=== PATIENT | female | born 1945 | race Two or more races ===

== ENCOUNTER → 2017-09-13 | Outpatient (REF) | payer MEDICARE, MEDICAID ==
[2017-09-13 13:47] LABS: BASO # 0.1 10^3/uL (0.0-0.2); BASO % 0.6 % (0.0-1.0); EOS # 0.3 10^3/uL (0.0-0.50); EOS % 2.7 % (0.0-3.0); LYMPH # 2.4 10^3/uL (1.5-4.5); LYMPH % 23.3 % (24.0-44.0); MEAN CORPUSCULAR HEMOGLOBIN 29.1 pg (27.0-33.0); MEAN CORPUSCULAR VOLUME 90.9 fl (80.0-96.0); MONO # 0.8 10^3/uL (0.0-0.8); MONO % 8.1 % (0.0-5.0); NEUTROPHILS # 6.5 10^3/uL (1.8-7.7); NEUTROPHILS % 64.3 % (36.0-66.0); PLATELET COUNT, AUTOMATED 307 10^3/uL (150-450); RED CELL DISTRIBUTION WIDTH 12.9 % (11.5-14.5); WHITE BLOOD COUNT 10.1 10^3/uL (4.0-10.0)
[2017-09-13 14:38] LABS: PERCENT SATURATION 17.4 % (13.2-45.0)
== END ==
LOC: M SFHCPLAZ 11:53
PROVIDERS: ATTEND Physician Assistant Medical
DX: E11.8 Type 2 diabetes mellitus with unspecified complications (principal); K92.1 Melena
CPT/HCPCS: 82728; 83036; 83550; 85025; G0463

== ENCOUNTER → 2017-11-01 | Outpatient (REF) | payer MEDICARE ==
[2017-11-01 16:27] LABS: BASO # 0.1 10^3/uL (0.0-0.2); BASO % 1.2 % (0.0-1.0); EOS # 0.3 10^3/uL (0.0-0.50); EOS % 3.4 % (0.0-3.0); HEMATOCRIT 36.1 % (36.0-47.0); HEMOGLOBIN 11.7 g/dl (12.0-16.0); IMMATURE GRANULOCYTE % 0.3 % (0-0); LYMPH # 2.5 10^3/uL (1.5-4.5); LYMPH % 32.5 % (24.0-44.0); MEAN CORPUSCULAR HEMOGLOBIN 29.1 pg (27.0-33.0); MEAN CORPUSCULAR HGB CONC 32.4 g/dl (32.0-36.5); MEAN CORPUSCULAR VOLUME 89.8 fl (80.0-96.0); MONO # 0.7 10^3/uL (0.0-0.8); MONO % 8.6 % (0.0-5.0); NEUTROPHILS # 4.2 10^3/uL (1.8-7.7); PLATELET COUNT, AUTOMATED 206 10^3/uL (150-450); RED BLOOD COUNT 4.02 10^6/uL (4.00-5.40); RED CELL DISTRIBUTION WIDTH 13.2 % (11.5-14.5); WHITE BLOOD COUNT 7.7 10^3/uL (4.0-10.0)
[2017-11-01 17:13] LABS: ALBUMIN 3.8 GM/DL (3.2-5.2); ALBUMIN/GLOBULIN RATIO 0.86 (1.00-1.93); ALKALINE PHOSPHATASE 66 U/L (45-117); ALT/SGPT 18 U/L (12-78); ANION GAP 6 MEQ/L (8-16); AST/SGOT 18 U/L (7-37); BILIRUBIN,TOTAL 0.4 MG/DL (0.2-1.0); BLOOD UREA NITROGEN 30 MG/DL (7-18); CALCIUM LEVEL 8.8 MG/DL (8.8-10.2); CARBON DIOXIDE LEVEL 29 MEQ/L (21-32); CHLORIDE LEVEL 105 MEQ/L (98-107); CHOLESTEROL LEVEL 262 MG/DL (<200); CHOLESTEROL RISK RATIO 7.081 (<5); CREATININE FOR GFR 1.36 MG/DL (0.55-1.02); FERRITIN 77 NG/ML (8-252); FREE T4 1.08 NG/DL (0.76-1.46); GLOMERULAR FILTRATION RATE 40.7 (>39); GLUCOSE, FASTING 103 MG/DL (70-100); HDL CHOLESTEROL 37 MG/DL (>40); IRON (FE) 88 UG/DL (50-170); NON-HDL-C 225 MG/DL; PERCENT SATURATION 28.2 % (13.2-45.0); POTASSIUM SERUM 4.9 MEQ/L (3.5-5.1); SODIUM LEVEL 140 MEQ/L (136-145); TOTAL IRON BINDING CAPACITY 312 UG/DL (250-450); TOTAL PROTEIN 8.2 GM/DL (6.4-8.2); TRIGLYCERIDES LEVEL 628 MG/DL (<150)
== END ==
LOC: M SFHCPLAZ 15:17
DX: D50.9 Iron deficiency anemia, unspecified (principal); E11.8 Type 2 diabetes mellitus with unspecified complications; E03.9 Hypothyroidism, unspecified; Z13.220 Encounter for screening for lipoid disorders
CPT/HCPCS: 83550

== ENCOUNTER → 2018-02-22 | Outpatient (REF) | payer MEDICARE, MEDICAID ==
[2018-02-22 12:26] LABS: ALBUMIN 3.7 GM/DL (3.2-5.2); ALBUMIN/GLOBULIN RATIO 0.88 (1.00-1.93); ALKALINE PHOSPHATASE 65 U/L (45-117); ALT/SGPT 24 U/L (12-78); ANION GAP 7 MEQ/L (8-16); AST/SGOT 20 U/L (7-37); BILIRUBIN,TOTAL 0.4 MG/DL (0.2-1.0); BLOOD UREA NITROGEN 37 MG/DL (7-18); CALCIUM LEVEL 9.2 MG/DL (8.8-10.2); CARBON DIOXIDE LEVEL 27 MEQ/L (21-32); CHLORIDE LEVEL 109 MEQ/L (98-107); CREATININE FOR GFR 1.68 MG/DL (0.55-1.30); GLOMERULAR FILTRATION RATE 31.9 (>39); GLUCOSE, FASTING 134 MG/DL (70-100); POTASSIUM SERUM 4.9 MEQ/L (3.5-5.1); SODIUM LEVEL 143 MEQ/L (136-145); TOTAL PROTEIN 7.9 GM/DL (6.4-8.2)
[2018-02-22 13:02] LABS: ESTIMATED AVERAGE GLUCOSE 140 MG/DL (60-110); HEMOGLOBIN A1c 6.5 %
== END ==
LOC: M SFHCPLAZ 08:37
DX: E11.8 Type 2 diabetes mellitus with unspecified complications (principal); I10 Essential (primary) hypertension
CPT/HCPCS: 80053

== ENCOUNTER → 2018-05-24 | Outpatient (REF) | payer OTHER, MEDICAID ==
[2018-05-24 12:26] LABS: ALBUMIN 3.7 GM/DL (3.2-5.2); ALKALINE PHOSPHATASE 61 U/L (45-117); ALT/SGPT 22 U/L (12-78); ANION GAP 5 MEQ/L (8-16); AST/SGOT 18 U/L (7-37); BILIRUBIN,TOTAL 0.4 MG/DL (0.2-1.0); BLOOD UREA NITROGEN 35 MG/DL (7-18); CARBON DIOXIDE LEVEL 32 MEQ/L (21-32); CHLORIDE LEVEL 108 MEQ/L (98-107); FREE T4 0.72 NG/DL (0.76-1.46); GLOMERULAR FILTRATION RATE 27.7 (>39); GLUCOSE, FASTING 129 MG/DL (70-100); SODIUM LEVEL 145 MEQ/L (136-145); TOTAL PROTEIN 7.8 GM/DL (6.4-8.2)
[2018-05-24 12:28] LABS: POTASSIUM SERUM 5.2 MEQ/L (3.5-5.1)
== END ==
LOC: M SFHCPLAZ 08:51
DX: N18.3 Chronic kidney disease, stage 3 (moderate) (principal); E03.9 Hypothyroidism, unspecified

== ENCOUNTER → 2018-06-27 | Outpatient (REF) | payer OTHER, MEDICAID ==
[2018-06-27 10:51] LABS: ALBUMIN 4.1 GM/DL (3.2-5.2); ALKALINE PHOSPHATASE 61 U/L (45-117); ALT/SGPT 21 U/L (12-78); ANION GAP 6 MEQ/L (8-16); AST/SGOT 21 U/L (7-37); BILIRUBIN,TOTAL 0.4 MG/DL (0.2-1.0); BLOOD UREA NITROGEN 25 MG/DL (7-18); CALCIUM LEVEL 9.5 MG/DL (8.8-10.2); CARBON DIOXIDE LEVEL 27 MEQ/L (21-32); CHLORIDE LEVEL 106 MEQ/L (98-107); CREATININE FOR GFR 1.65 MG/DL (0.55-1.30); GLOMERULAR FILTRATION RATE 32.6 (>39); GLUCOSE, FASTING 117 MG/DL (70-100); POTASSIUM SERUM 5.7 MEQ/L (3.5-5.1); SODIUM LEVEL 139 MEQ/L (136-145); TOTAL PROTEIN 8.2 GM/DL (6.4-8.2)
== END ==
LOC: M SFHCPLAZ 08:44
DX: N18.3 Chronic kidney disease, stage 3 (moderate) (principal)

== ENCOUNTER → 2018-07-24 | Outpatient (REF) | payer OTHER, MEDICAID ==
[2018-07-24 12:18] LABS: ESTIMATED AVERAGE GLUCOSE 143 MG/DL (60-110); HEMOGLOBIN A1c 6.6 %
[2018-07-24 12:29] LABS: ALBUMIN 3.5 GM/DL (3.2-5.2); ALBUMIN/GLOBULIN RATIO 0.88 (1.00-1.93); ALKALINE PHOSPHATASE 65 U/L (45-117); ALT/SGPT 22 U/L (12-78); ANION GAP 8 MEQ/L (8-16); AST/SGOT 17 U/L (7-37); BILIRUBIN,TOTAL 0.4 MG/DL (0.2-1.0); BLOOD UREA NITROGEN 31 MG/DL (7-18); CALCIUM LEVEL 8.6 MG/DL (8.8-10.2); CARBON DIOXIDE LEVEL 28 MEQ/L (21-32); CHLORIDE LEVEL 105 MEQ/L (98-107); CREATININE FOR GFR 1.57 MG/DL (0.55-1.30); FREE T4 1.29 NG/DL (0.76-1.46); GLOMERULAR FILTRATION RATE 34.5 (>39); GLUCOSE, FASTING 151 MG/DL (70-100); POTASSIUM SERUM 5.1 MEQ/L (3.5-5.1); SODIUM LEVEL 141 MEQ/L (136-145); THYROID STIMULATING HORMONE 0.084 uIU/ML (0.358-3.740); TOTAL PROTEIN 7.5 GM/DL (6.4-8.2)
== END ==
LOC: M SFHCPLAZ 09:40
DX: N18.3 Chronic kidney disease, stage 3 (moderate) (principal); E03.9 Hypothyroidism, unspecified; E11.8 Type 2 diabetes mellitus with unspecified complications
CPT/HCPCS: 84443

== ENCOUNTER → 2018-08-15 | Outpatient (REF) | payer OTHER, MEDICAID ==
[2018-08-15 12:21] LABS: ANION GAP 6 MEQ/L (8-16); BLOOD UREA NITROGEN 36 MG/DL (7-18); CALCIUM LEVEL 9.3 MG/DL (8.8-10.2); CARBON DIOXIDE LEVEL 32 MEQ/L (21-32); CHLORIDE LEVEL 103 MEQ/L (98-107); CREATININE FOR GFR 1.79 MG/DL (0.55-1.30); GLOMERULAR FILTRATION RATE 29.6 (>39); GLUCOSE, FASTING 159 MG/DL (70-100); POTASSIUM SERUM 4.3 MEQ/L (3.5-5.1); SODIUM LEVEL 141 MEQ/L (136-145)
== END ==
LOC: M SFHCPLAZ 09:45
DX: N18.3 Chronic kidney disease, stage 3 (moderate) (principal)

== ENCOUNTER → 2018-09-21 | Outpatient (REF) | payer MEDICARE, MEDICAID | LOC: M SFHCPLAZ 15:18 | DX: R06.02 Shortness of breath (principal); E11.8 Type 2 diabetes mellitus with unspecified complications; Z53.8 Procedure and treatment not carried out for other reasons ==

== ENCOUNTER → 2018-10-03 | Outpatient (CLI) | payer MEDICARE ==
--- NOTE | 2018-11-05 09:49 | REP ---
BILATERAL SCREENING MAMMOGRAM WITH 3D TOMOSYNTHESIS: No prior studies available for comparison. Tyrer-Cuzick lifetime risk of breast cancer 5.5%. Family history of breast cancer at age 37 in a niece. Benign lumpectomy left breast 2000. There is mild scattered fibroglandular tissue bilaterally. In the lower outer left breast there is a spiculated nodular opacity approximately 1.5 cm in maximum diameter. This is in the mid third to posterior aspect of the left breast. No other mass or clustered microcalcifications are seen. IMPRESSION: BIRADS 0: BI-RADS/ACR category 0 mammogram, Incomplete. Need additional imaging evaluation and/or prior mammograms for comparison. Spiculated nodular opacity lower outer left breast. Recommend spot compression views and ultrasound to further evaluate. This mammogram was interpreted with the aid of an FDA-approved computer-aided detection system. The patient states she has not had a clinical breast exam in over a year. The patient letter being requested is M0.
== END ==
LOC: M WHC 10:22
PROVIDERS: ATTEND Physician Assistant Medical
DX: Z12.31 Encounter for screening mammogram for malignant neoplasm of breast (principal); Z80.3 Family history of malignant neoplasm of breast; N63.23 Unspecified lump in the left breast, lower outer quadrant

== ENCOUNTER → 2018-10-19 | Outpatient (REF) | payer MEDICARE, MEDICAID ==
[2018-10-19 12:15] LABS: BASO # 0.1 10^3/uL (0.0-0.2); EOS # 0.2 10^3/uL (0.0-0.50); EOS % 2.5 % (0.0-3.0); HEMATOCRIT 36.7 % (36.0-47.0); HEMOGLOBIN 12.1 g/dl (12.0-15.5); LYMPH # 2.2 10^3/uL (1.5-4.5); LYMPH % 27.2 % (24.0-44.0); MEAN CORPUSCULAR HEMOGLOBIN 29.3 pg (27.0-33.0); MEAN CORPUSCULAR VOLUME 88.9 fl (80.0-96.0); MONO # 0.7 10^3/uL (0.0-0.8); MONO % 8.2 % (0.0-5.0); NEUTROPHILS # 4.8 10^3/uL (1.8-7.7); PLATELET COUNT, AUTOMATED 195 10^3/uL (150-450); RED BLOOD COUNT 4.13 10^6/uL (4.00-5.40); WHITE BLOOD COUNT 7.9 10^3/uL (4.0-10.0)
[2018-10-19 12:18] LABS: ALBUMIN 3.9 GM/DL (3.2-5.2); BILIRUBIN,TOTAL 0.3 MG/DL (0.2-1.0); CALCIUM LEVEL 9.8 MG/DL (8.8-10.2); CREATININE FOR GFR 1.32 MG/DL (0.55-1.30); POTASSIUM SERUM 4.9 MEQ/L (3.5-5.1); TOTAL PROTEIN 7.8 GM/DL (6.4-8.2)
[2018-10-19 12:28] LABS: HEMOGLOBIN A1c 6.7 %
[2018-10-19 12:34] LABS: FREE T4 1.1 NG/DL (0.76-1.46); THYROID STIMULATING HORMONE 3.02 uIU/ML (0.358-3.740)
== END ==
LOC: M SFHCPLAZ 09:26
PROVIDERS: ATTEND Physician Assistant Medical
DX: E03.9 Hypothyroidism, unspecified (principal); R06.02 Shortness of breath; N18.3 Chronic kidney disease, stage 3 (moderate); E11.22 Type 2 diabetes mellitus with diabetic chronic kidney disease

== ENCOUNTER → 2018-11-14 | Outpatient (CLI) | payer MEDICARE, MEDICAID ==
--- NOTE | 2018-11-14 13:45 | REP ---
Digital diagnostic unilateral left breast mammography with CAD and focused left breast sonography: History: Screening mammography from October 03, 2018 was BI-RADS category 0 because of a spiculated nodular opacity in the lateral aspect of the left breast. Diagnostic imaging was recommended. No comparison prior mammograms. Mammographic findings: Magnified focal spot compression CC, true ML, and MLO views of the left breast confirm the presence of an ill-defined somewhat spiculated appearing asymmetric density in the left lateral mid breast at approximately 3 o'clock. This has ill-defined margins but measures approximately 12 mm in greatest diameter. This corresponds to the mammographic findings on October 03, 2018. No other mammographic abnormality. Sonographic findings: Focused left breast sonography is carried out. The left breast is scanned from 2 o'clock to 4 o'clock. At 3 o'clock there is a hypoechoic irregularly marginated spiculated appearing lesion 1.4 x 1.2 x 0.9 cm with acoustic shadowing. This is 4.8 cm from the nipple. On several images its long axis appears perpendicular to the skin. It is felt to correspond to the mammographic opacity. It is suspicious by sonographic criteria. Impression: BIRADS 5: BI-RADS/ACR category 5 mammogram. Highly Suggestive of Malignancy - appropriate action should be taken. BI-RADS category 5 highly suspicious left breast imaging. Spiculated lesion seen mammographically and sonographically in the left lateral breast. Ultrasound guided needle biopsy procedure is recommended with marker clip placement and post marker clip placement mammogram images. This mammogram was interpreted with the aid of an FDA-approved computer-aided detection system. The patient letter being requested is m4 . Electronically Signed by Pedro Ruiz MD 11/14/2018 07:02 P
== END ==
LOC: M RAD 11:13
PROVIDERS: ATTEND Physician Assistant Medical
DX: R92.8 Other abnormal and inconclusive findings on diagnostic imaging of breast (principal)

== ENCOUNTER 2018-12-01 19:39 | Emergency (ER) | payer MEDICARE, MEDICAID ==
[~2018-12-01] VITALS: Ht 165.1 cm; Wt 65.0 kg
[2018-12-01 20:15] VITALS: BP 189/86
[2018-12-01] MEDS ORDERED: cloNIDine 0.1 MG TAB PO ONE (20:15)
[2018-12-01 20:38] LABS: CREATININE FOR GFR 1.48 MG/DL (0.55-1.30); GLOMERULAR FILTRATION RATE 36.8 (>39)
[2018-12-01 20:57] VITALS: BP 158/73
--- NOTE | 2018-12-02 17:47 | ECGEPIP ---
Stationary ECG Study [facility] - ED Test Date: 2018-12-01 Pat Name: COBY NIEVES Department: Room: - Gender: F Complaint Analyst: : 1945 Requested By: ARSH VAUGHAN Order Number: [id number] Reading MD: Zee Funez Measurements Intervals [place] Rate: 104 P: 50 [place]: 180 QRS: 19 QRSD: 90 T: 59 QT: 313 QTc: 413 Interpretive Statements SINUS TACHYCARDIA MINIMAL ST DEPRESSION ABNORMAL RHYTHM ECG NO PRIOR FOR COMPARISON Electronically Signed On 12-02-2018 17:47:30 EST by Zee Funez
== END 2018-12-01 20:58 | disposition home or self-care (01) ==
LOC: M ED 19:39
DX: I10 Essential (primary) hypertension (principal); R00.0 Tachycardia, unspecified; R94.31 Abnormal electrocardiogram [ECG] [EKG]; E11.9 Type 2 diabetes mellitus without complications; K21.9 Gastro-esophageal reflux disease without esophagitis; F41.9 Anxiety disorder, unspecified; E03.9 Hypothyroidism, unspecified; E73.9 Lactose intolerance, unspecified

== ENCOUNTER → 2018-12-07 | Outpatient (CLI) | payer MEDICARE, MEDICAID ==
[~2018-12-07] MED LIST: LIDOCAINE 1% MDV 20ML VIAL As Ordered ONE
--- NOTE | 2018-12-07 10:03 | REP ---
Digital diagnostic unilateral left breast mammogram with CAD: History: Two-view mammography post ultrasound-guided needle biopsy. Marker clip placement views. Comparison mammography 10/03/2018. Findings: CC and true MLO views of the left breast demonstrate that the needle biopsy marker clip is in good position adjacent to the spiculated lesion seen laterally in the left breast on both views. No evidence of hematoma. Impression: Marker clip is seen in good position. Electronically Signed by Pedro Ruiz MD 12/07/2018 02:39 P
--- NOTE | 2018-12-07 17:13 | REP ---
ULTRASOUND-GUIDED LEFT BREAST BIOPSY The procedure was performed under the direct supervision of Dr. Ruiz. Patient has a history of A hypoechoic the irregularly marginated spiculated appearing lesion measuring 1.4 x 1.2 x 0.9 cm in the 3 o'clock position of the left breast seen on a previous ultrasound dated 11/14/2018. The risks and benefits of the procedure were explained to the patient, through an production clerk, and informed consent was obtained. The left breast mass was localized using ultrasound guidance. The skin was prepped and draped in a sterile fashion. 1% lidocaine was used as a local anesthetic. Using ultrasound guidance a 13-gauge suction assisted Mammotome needle was inserted and six core biopsy samples were obtained. A marker clip was placed at the biopsy site. The patient tolerated the procedure well and there were no immediate complications. After the appropriate amount of monitored convalescence the patient was discharged from the department. Reviewed by BJORN Pitts 12/07/2018 04:05 P Electronically Signed by Pedro Ruiz MD 12/07/2018 05:04 P
== END ==
LOC: M RADPRO 08:09
PROVIDERS: ATTEND Physician Assistant Medical
DX: C50.412 Malignant neoplasm of upper-outer quadrant of left female breast (principal); C50.512 Malignant neoplasm of lower-outer quadrant of left female breast; Z17.0 Estrogen receptor positive status [ER+]; Z79.899 Other long term (current) drug therapy

== ENCOUNTER → 2019-01-23 | Outpatient (REF) | payer MEDICARE, MEDICAID ==
[2019-01-23 12:36] LABS: FREE T4 0.9 NG/DL (0.76-1.46); THYROID STIMULATING HORMONE 2.73 uIU/ML (0.358-3.740)
== END ==
LOC: M SFHCPLAZ 10:06
PROVIDERS: ATTEND Physician Assistant Medical
DX: E03.9 Hypothyroidism, unspecified (principal)
CPT/HCPCS: 36415; 84439; 84443; G0463

== ENCOUNTER → 2019-03-01 | Outpatient (CLI) | payer MEDICARE, MEDICAID ==
[~2019-03-01] MED LIST changes: +AMLO25TA PO; +ARIM1TAB5 PO; +ATOR1TAB21 PO; +B-12100T2 PO; +HM A10TA PO; +KP F1200 PO; +LEVO112T2 PO; -LIDOCAINE 1% MDV 20ML VIAL As Ordered ONE; +MAGN250T7 PO; +NEUR600T PO; +OMEP-221 PO; +SIME180C PO; +TEMA7.5C PO; +VITA-157 PO; +VITAD1000T PO; +XANA0.5T PO
--- NOTE | 2019-03-04 09:39 | RADONC ---
RADIATION ONCOLOGY CONSULTATION NOTE DATE OF CONSULTATION: 03/01/2019 CHART NUMBER: [id number]. DIAGNOSIS: Left breast cancer. STAGE: IA, T1c, N0, M0, grade 2, ER positive, MO positive, HER2 negative. ECOG PERFORMANCE STATUS: Zero. CONSULTATION NOTE: Ms. Mixon is a very pleasant 73-year-old white female with the diagnosis of what appears to be a stage IA, [id number], ER positive, MO positive, HER2 negative, moderately differentiated invasive ductal carcinoma of the left breast who is presenting to us today status post lumpectomy and sentinel lymph node biopsy for consideration of postoperative radiation therapy for conservative breast management. Oncotype testing was done, and she had a recurrence score of 9 for a risk of distant recurrence of 3% with HERNANDEZ alone. HISTORY OF PRESENT ILLNESS: The patient reports that she was first noted to have some type of breast abnormality a couple of years ago in [place]. She was lost to followup; but more recently, a mammogram was undertaken on 11/14/2018, which showed a 1.4 cm x 1.2 cm x 0.9 cm irregular marginated spiculated area in the 3 o'clock position of the left breast. It was 4.8 cm from the nipple. On 12/18/2018, the patient underwent a needle biopsy, and pathology revealed a moderately differentiated invasive carcinoma. The tumor was estrogen receptor positive, progesterone receptor positive, and HER2 negative. She subsequently underwent lumpectomy and sentinel lymph node sampling on 01/10/2019. Pathology revealed a 1.4 cm moderately differentiated invasive ductal carcinoma. All margins of resection were negative with the closest margin being 5 mm. A total of two sentinel lymph nodes were sampled. Both were negative for metastatic disease. Oncotype testing was undertaken, and the patient's recurrence score was 9 with a distant recurrent risk at 9 years of only 3% with AI or HERNANDEZ alone. It was, therefore, determined that this patient would not benefit from chemotherapy, and she is now being referred to us for consideration of postoperative radiation therapy for conservative breast management. PAST MEDICAL HISTORY: The patient's past medical history is positive for arthritis, hypertension, diabetes, and some type of kidney disease. She also reports hypothyroidism. She had a hysterectomy in the past. She also says she has had some cataracts. ALLERGIES: The patient is lactose intolerant. SOCIAL HISTORY: The patient does not smoke cigarettes nor abuse alcohol. FAMILY HISTORY: The patient's family history is positive for various malignancies throughout her family members. These include her father, a niece, and her brother. REVIEW OF SYSTEMS: The patient's review of systems is noncontributory. She denies nausea, vomiting, fevers, chills, night sweats, diplopia, headaches, anxiety or depression, anorexia, weight loss, visual disturbances, chest pain, urinary or bowel difficulties, bone pain, or neurological problems. PHYSICAL EXAMINATION: The patient is a well-developed, well-nourished female in no acute distress. HEENT examination is normocephalic, atraumatic. Extraocular movements are intact. There is no palpable cervical, supraclavicular, infraclavicular, axillary, or inguinal lymphadenopathy present. Lungs are clear to auscultation and percussion. Heart has a regular rate and rhythm. Abdomen is benign with no hepatosplenomegaly, masses, or tenderness. Breast examination reveals no masses or discharge bilaterally. Skeletal examination reveals no tenderness to pressure or percussion of the bony skeleton. Extremities reveal no clubbing, cyanosis, or edema. Neurologic examination is grossly intact, as is the remainder of the physical examination. ASSESSMENT: Ms. Mixon is clearly a candidate for external beam radiation therapy, and I have so informed her. I have discussed with the patient in detail the potential benefits, as well as possible acute and chronic sequelae of external beam radiation therapy. We have discussed logistics of treatment planning, simulation, and subsequent fractionated daily radiation treatments. I suspect the patient will do quite well with these treatments. I am scheduling the patient for the next available simulation slot, and radiation treatments will begin subsequently. Thank you for allowing us to participate in the care of this very pleasant woman. If I could be of any further assistance or provide you with any information, please feel free to contact me at any time. As always, warm regards. Yeyo Jorge cc: MD Juliet Hu MD Susan Swatsworth, PA
== END ==
LOC: M ONCR 08:56
PROVIDERS: ATTEND Radiology Radiation Oncology
DX: C50.912 Malignant neoplasm of unspecified site of left female breast (principal)

== ENCOUNTER → 2019-04-03 | Outpatient (CLI) | payer MEDICARE, MEDICAID ==
--- NOTE | 2019-04-05 15:46 | DEXA ---
AP SPINE L1 - L4 1.344 1.2 2.9 LT FEMUR TOTAL 1.137 1.0 2.7 LT NECK 1.019 -0.1 1.7 RT FEMUR TOTAL 1.188 1.4 3.1 RT NECK 1.046 0.1 1.9 TOTAL BODY TOTAL OTHER COMMENTS: Normal bone densitometry of the spine and hips. FOLLOW-UP: Recommendation for the next bone density exam: 5 years. SEBAS
== END ==
LOC: M WHC 14:13
PROVIDERS: ATTEND Internal Medicine Hematology & Oncology
DX: C50.919 Malignant neoplasm of unspecified site of unspecified female breast (principal); D64.9 Anemia, unspecified; N18.9 Chronic kidney disease, unspecified; Z60.3 Acculturation difficulty; Z79.899 Other long term (current) drug therapy

== ENCOUNTER 2019-04-05 08:55 | Outpatient (RCR) | payer MEDICARE, MEDICAID ==
[2019-03-13 09:49] LABS: HEMATOCRIT 37.8 % (36.0-47.0); HEMOGLOBIN 12.3 g/dl (12.0-15.5); LYMPH % 29.1 % (24.0-44.0); MEAN CORPUSCULAR HEMOGLOBIN 29.8 pg (27.0-33.0); MEAN CORPUSCULAR HGB CONC 32.5 g/dl (32.0-36.5); MEAN CORPUSCULAR VOLUME 91.6 fl (80.0-96.0); NEUTROPHILS # 4.9 10^3/uL (1.8-7.7); NEUTROPHILS % 61.8 % (36.0-66.0); RED BLOOD COUNT 4.13 10^6/uL (4.00-5.40); WHITE BLOOD COUNT 7.9 10^3/uL (4.0-10.0)
--- NOTE | 2019-03-13 11:41 | RADONC ---
RADIATION ONCOLOGY SIMULATION NOTE DATE: 03/13/2019 DIAGNOSIS: Stage IA, [id number], grade 2, ER positive, AL positive, HER2/francisco negative infiltrating ductal carcinoma of the left breast. ECOG PERFORMANCE STATUS: 0. SIMULATION NOTE: The patient comes today for her CT simulation for a diagnosis of left breast cancer, early stage. The patient underwent an immobilization device creation for her upcoming treatments of adjuvant radiotherapy. The immobilization device was fabricated without significant complications or untoward side effects. Thereafter the patient was placed in a supine position and 3 mm images were captured from the CT scanner for appropriate contouring and radiation therapy treatment planning purposes. She was scanned over the entire thoracic area. The simulation process went without complications or untoward side effects. I was present during the entire course of the simulation. The images will be contoured as to normal structures and the structures of interest to treat and the actual radiation therapy treatment will follow after approval of the radiation treatment plan. cc: MD Juliet Hu MD Susan Swatsworth, PA MTDD
--- NOTE | 2019-03-26 07:14 | RADONC ---
RADIATION ONCOLOGY PROGRESS NOTE DATE: 03/25/2019 CHART #: Ms. Hart was taken to the linear accelerator today for her first fraction of radiation to her breast. It was tolerated without difficulty or discomfort. REVIEW OF SYSTEMS: The patient's review of systems is noncontributory. Denies nausea, vomiting, fevers, chills, night sweats, diplopia, headaches, anxiety or depression, anorexia, weight loss, visual disturbances, chest pain, urinary or bowel difficulties, bone pain, or neurological problems. PHYSICAL EXAMINATION: The patient's skin clearly shows no evidence of radiation change present since this was her first fraction of treatment. The remainder of her physical exam remains unchanged as well. Ms. Hart tolerated radiation quite well and radiation will continue as scheduled.
== END 2019-04-07 ==
LOC: M ONCR 08:55
PROVIDERS: ATTEND Radiology Radiation Oncology
DX: C50.912 Malignant neoplasm of unspecified site of left female breast (principal)

== ENCOUNTER 2019-04-21 15:13 | Emergency (ER) | payer MEDICARE, MEDICAID ==
[~2019-04-21] VITALS: Ht 162.6 cm; Wt 66.8 kg
[2019-04-21 16:39] LABS: BASO # 0.1 10^3/uL (0.0-0.2); BASO % 1.1 % (0.0-1.0); EOS # 0.2 10^3/uL (0.0-0.50); EOS % 2.5 % (0.0-3.0); HEMATOCRIT 34.7 % (36.0-47.0); HEMOGLOBIN 11.5 g/dl (12.0-15.5); LYMPH # 1.3 10^3/uL (1.5-4.5); LYMPH % 20.5 % (24.0-44.0); MEAN CORPUSCULAR HEMOGLOBIN 29.3 pg (27.0-33.0); MEAN CORPUSCULAR HGB CONC 33.1 g/dl (32.0-36.5); MEAN CORPUSCULAR VOLUME 88.5 fl (80.0-96.0); MONO # 0.7 10^3/uL (0.0-0.8); NEUTROPHILS % 64.7 % (36.0-66.0); PLATELET COUNT, AUTOMATED 165 10^3/uL (150-450); RED BLOOD COUNT 3.92 10^6/uL (4.00-5.40); WHITE BLOOD COUNT 6.1 10^3/uL (4.0-10.0)
[2019-04-21 17:09] LABS: BLOOD UREA NITROGEN 31 MG/DL (7-18); CALCIUM LEVEL 9.3 MG/DL (8.8-10.2); CARBON DIOXIDE LEVEL 27 MEQ/L (21-32); CHLORIDE LEVEL 107 MEQ/L (98-107); CREATININE FOR GFR 1.31 MG/DL (0.55-1.30); GLOMERULAR FILTRATION RATE 42.4 (>39); GLUCOSE, FASTING 123 MG/DL (70-100); POTASSIUM SERUM 4.5 MEQ/L (3.5-5.1); SODIUM LEVEL 142 MEQ/L (136-145)
[2019-04-21] MEDS ORDERED: diphenhydrAMINE INJ 50MG/ML VIAL (J1200) IV ONE (18:00)
[2019-04-21 18:12] LABS: CK-MB VALUE MASS 2.8 NG/ML (<3.6); CPK CREATINE PHOSPHOKINASE 99 U/L (26-192); FREE T4 0.96 NG/DL (0.76-1.46); MAGNESIUM LEVEL 1.9 MG/DL (1.8-2.4); MB/CK RELATIVE INDEX 2.83 (< OR =4); PHOSPHORUS LEVEL 3.4 MG/DL (2.5-4.9); TROPONIN I < 0.02 NG/ML (< 0.10)
[2019-04-21] MEDS ORDERED: amLODIPine 5 MG TAB PO ONE (18:30)
[2019-04-21 18:44] VITALS: BP 191/86
[2019-04-21] MEDS ORDERED: LORazepam 2 MG/ML VIAL (J2060) IV ONE (19:15)
--- NOTE | 2019-04-21 19:34 | REPVR ---
EXAM: CT Head Without Contrast EXAM DATE/TIME: 04/21/2019 7:25 PM CLINICAL HISTORY: 73 years old, female; Weakness, extremity; Additional info: HTN, weakness TECHNIQUE: Imaging protocol: Axial computed tomography images of the head without contrast. Radiation optimization: All CT scans at this facility use at least one of these dose optimization techniques: automated exposure control; mA and/or kV adjustment per patient size (includes targeted exams where dose is matched to clinical indication); or iterative reconstruction. COMPARISON: No relevant prior studies available. FINDINGS: Brain: There is mild parenchymal volume loss. Mild white matter changes are demonstrated in the subcortical, centrum semiovale and periventricular white matter consistent with small vessel white matter angiopathic gliosis. Ventricles: Normal. No ventriculomegaly. Bones/joints: There is hyperostosis frontalis interna. Sinuses: Visualized sinuses are unremarkable. No fluid levels. Mastoid air cells: Visualized mastoid air cells are well aerated. No mastoid effusion. Soft tissues: Unremarkable. IMPRESSION: There is mild parenchymal volume loss. Mild white matter changes are demonstrated in the subcortical, centrum semiovale and periventricular white matter consistent with small vessel white matter angiopathic gliosis. Electronically signed by: Eduin Meade On 04/21/2019 19:33:57 PM
[2019-04-21 21:00] VITALS: BP 160/81
--- NOTE | 2019-04-22 08:16 | REP ---
Chest x-ray: Two views. History: Weakness. Findings: The lungs are well inflated and clear. The pleural angles are sharp. Heart size is borderline. Pulmonary vasculature is not increased. EKG electrodes are seen. There are mild degenerative changes in the thoracic spine. Impression: Borderline heart size. Otherwise no acute disease. Electronically Signed by Pedro Ruiz MD 04/22/2019 08:08 A
--- NOTE | 2019-04-22 20:37 | ECGEPIP ---
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
[2019-04-29] MEDS ORDERED: SILV40CR EXT (09:44)
[2019-05-03] MEDS ORDERED: FAMO40TA3 PO (08:10)
[2019-05-03] MEDS ORDERED: NORV5TAB PO (08:10)
[2019-05-06] MEDS ORDERED: PERC5TAB12 PO (09:38)
== END 2019-04-21 21:16 | disposition home or self-care (01) ==
LOC: M ED 15:13
DX: R53.83 Other fatigue (principal); R06.02 Shortness of breath; K14.6 Glossodynia; C50.012 Malignant neoplasm of nipple and areola, left female breast; I12.9 Hypertensive chronic kidney disease with stage 1 through stage 4 chronic kidney disease, or unspecified chronic kidney disease; E11.40 Type 2 diabetes mellitus with diabetic neuropathy, unspecified; N18.9 Chronic kidney disease, unspecified; E11.22 Type 2 diabetes mellitus with diabetic chronic kidney disease; E07.9 Disorder of thyroid, unspecified; Z87.891 Personal history of nicotine dependence; Z91.011 Allergy to milk products; Z79.899 Other long term (current) drug therapy
CPT/HCPCS: 70450; 71046; 80048; 81001; 82550; 82553; 83735; 84100; 84439; 84443; 84484; 85025; 87086; 93005; 93041; 94760; 96374; 96375; 99285; J1200; J2060

== ENCOUNTER 2019-05-07 09:01 | Outpatient (RCR) | payer MEDICARE, MEDICAID ==
--- NOTE | 2019-04-08 10:27 | RADONC ---
RADIATION ONCOLOGY PROGRESS NOTE DATE: 04/08/2019 CHART #: [id number] Mrs. Hart with a diagnosis of left breast cancer is currently receiving local regional radiotherapy to the chest. She has achieved a dose to date of 1980 cGy of an anticipated 4860 cGy. This dose will be followed by an additional 1200 cGy to the lumpectomy scar site. Thus far, she appears to be tolerating her therapy well with no specific complaints referable to her disease or to her treatments. REVIEW OF SYSTEMS: She specifically denies any nausea, vomiting, coughing, sputum production or hemoptysis. Her energy level is such that she is able to do many of her day-to-day activities without any alteration of her lifestyle. Skin irritation is not an issue for her. EXAMINATION FINDINGS: The skin within the irradiated volume shows neither erythema nor desquamation. Lymphatics: No palpable peripheral lymphadenopathy is appreciated. The remainder of the physical examination is unchanged. IMPRESSION: Tolerating therapy well. PLAN: Treatments to continue. MTDD
--- NOTE | 2019-04-15 10:30 | RADONC ---
RADIATION ONCOLOGY NOTE DATE: 04/15/2019 CHART NUMBER: [id number] NOTE: Ms. Hart is presently a dose of 2520 cGy to her left breast and is tolerating treatments quite well at this point with no complaints related to radiation therapy. She is having no skin pain or other problems. REVIEW OF SYSTEMS: The patient's review of systems is noncontributory. Denies nausea, vomiting, fevers, chills, night sweats, diplopia, headaches, anxiety or depression, anorexia, weight loss, visual disturbances, chest pain, urinary or bowel difficulties, bone pain, or neurological problems. PHYSICAL EXAMINATION: The patient's skin is in good condition with no evidence of radiation change present. There is no moist or dry desquamation. The remainder of her physical exam remains unchanged. Ms. Hart is tolerating treatments quite well and radiation will continue as scheduled. MTDD
--- NOTE | 2019-04-22 14:59 | RADONC ---
RADIATION ONCOLOGY PROGRESS NOTE DATE: 04/22/2019 CHART NUMBER: [id number] Ms. Hart is thus far at a dose of 3240 cGy to her left breast and as of Monday had been tolerating her treatments quite well with no complaints related to her radiation therapy. She had no skin discomfort or other problems. REVIEW OF SYSTEMS: The patient's review of systems is noncontributory. She denies nausea, vomiting, fevers, chills, night sweats, diplopia, headaches, anxiety or depression, anorexia, weight loss, visual disturbances, chest pain, urinary or bowel difficulties, bone pain, or neurological problems. PHYSICAL EXAMINATION As of Monday the patient's skin was in good condition with no evidence of moist or dry desquamation. The remainder of her physical exam remained unchanged. Ms. Hart did not come in today secondary to personal scheduling problems. She is scheduled to resume radiation tomorrow.
--- NOTE | 2019-05-01 06:44 | RADONC ---
RADIATION ONCOLOGY PROGRESS NOTE DATE: 04/30/2019 CHART #: [id number] Ms. Hart is presently at a dose of 4140 cGy to her left breast and is tolerating treatments quite well at this point with no complaints related to her radiation therapy other than some tenderness on her nipple. REVIEW OF SYSTEMS: The patient's review of systems is positive for nipple tenderness but is otherwise noncontributory. Denies nausea, vomiting, fevers, chills, night sweats, diplopia, headaches, anxiety or depression, anorexia, weight loss, visual disturbances, chest pain, urinary or bowel difficulties, bone pain, or neurological problems. PHYSICAL EXAMINATION: The patient's skin overall is in good condition but there is a small area of dry desquamation in the inframammary region. The remainder shows tanning and erythema. The remainder of her physical exam remains unchanged. Ms. Hart is tolerating treatments quite well and radiation will continue as scheduled. I have ordered a prescription for Silvadene to be applied topically.
--- NOTE | 2019-05-01 06:45 | RADONC ---
RADIATION ONCOLOGY SIMULATION NOTE DATE: 04/30/2019 CHART #; [id number] Ms. Hart was taken to the linear accelerator today for clinical setup of her electron beam left breast boost field. Setup was accomplished without difficulty or discomfort. Radiation treatment planning is underway and radiation treatments will begin subsequently. An immobilization device was created and will be used throughout the course of treatment. I was physically present throughout the course of clinical setup simulation.
[~2019-05-07 09:01] MED LIST changes: +FAMO40TA3 PO; +NORV5TAB PO; +PERC5TAB12 PO; +SILV40CR EXT
--- NOTE | 2019-05-07 09:42 | RADONC ---
RADIATION ONCOLOGY PROGRESS NOTE: DATE: 05/06/2019 Ms. Hart is presently at a dose of 5060 cGy to her left breast primary site and is presenting today with brisk erythema and moist desquamation in the inframammary region as well as pain. The patient's primary site area skin is erythematous but there is no desquamation. REVIEW OF SYSTEMS: The patient's review of systems is positive for skin and breast pain but is otherwise noncontributory. She denies nausea, vomiting, fevers, chills, night sweats, diplopia, headaches, anxiety or depression, anorexia, weight loss, visual disturbances, chest pain, urinary or bowel difficulties, bone pain, or neurological problems. PHYSICAL EXAMINATION: There is moist desquamation in the inframammary region which is no longer being treated. The remainder of the breast skin is very red and erythematous but without desquamation. The remainder of her physical exam remains unchanged. Ms. Hart is continuing radiation at this time. I have eliminated at least for now the last a boost treatment and we will plan on completing her on Monday. She is using a Silvadene prescription I have given her three times a day. In addition, I have written the patient a prescription for Percocet and discuss this with her as well as with her daughter. She is taking gabapentin and I have asked the daughter to keep an eye on her to make sure she is not overdoing it with medications. In the meantime, we will continue to follow her closely. Unfortunately, the daughter is returning to [place] on Monday. Otherwise, I would of given this patient this week for rest. For now radiation will continue as scheduled.
--- NOTE | 2019-05-08 07:22 | RADONC ---
RADIATION ONCOLOGY TREATMENT SUMMARY: DATE: 05/07/2019 CHART NUMBER: [id number] DIAGNOSIS: Left breast cancer. STAGE: I A, T1C, N0, M0, grade 2, ER positive, CA positive, HER2/francisco negative. ECOG PERFORMANCE STATUS: 0 Ms. Hart is a very pleasant 73-year-old white female with the diagnosis of what appears to be a stage I A, T1c, N0, M0, ER positive, CA positive, HER2/francisco negative, moderately differentiated invasive ductal carcinoma of the left breast who presented to us status post lumpectomy and sentinel lymph node biopsy for consideration of postoperative radiation therapy for conservative breast management. We treated the patient to the left breast for a total dose of 4860 cGy delivered in 27 fractions of 180 cGy each over 39 elapsed days from 03/25/2019 through 05/03/2019. The patient's left breast was treated on the linear accelerator utilizing a 6 MV photon beam via 3D conformal technique with medial and lateral tangential shoemaker. Following 4507 cGy. We blocked the heart in order to further reduce any radiation dose to the heart. Following completion of 4860 cGy, the primary site was boosted for an additional 400 cGy delivered in two fractions of 200 cGy each from 05/06/2019 through 05/07/2019. The primary site boost was treated on a linear accelerator utilizing a 12 mEq electron beam prescribed to the 90% isodose line via an en face technique. This brought the primary site to a total dose of 5260 cGy delivered in 29 fractions over 43 elapsed days from 04/23/2019 through 05/07/2019. We had initially planned on delivering a total of six primary site boost treatments, but the patient had decided she wanted to stop treatment at this point. Considering the discomfort she is in and the brisk skin reaction, I do not feel that those extra couple of radiation treatments to her surgical scar area would make a significant difference in her overall outcome. Once again, the patient has chosen to stop radiation slightly early. I have scheduled the patient to see me again in 1 month for further followup. She will also continue to be followed by her other physicians as well. She has been given my cell phone number and work number if I could be any assistance in the meantime. cc: MD Juliet Hu MD Susan Swatsworth, PA
== END 2019-05-08 ==
LOC: M ONCR 09:01
PROVIDERS: ATTEND Radiology Radiation Oncology
DX: C50.912 Malignant neoplasm of unspecified site of left female breast (principal)

== ENCOUNTER 2019-05-07 19:54 | Emergency (ER) | payer MEDICAID, MEDICARE ==
[~2019-05-07] VITALS: Ht 162.6 cm; Wt 67.3 kg
[2019-05-07 21:07] LABS: BASO % 0.5 % (0.0-1.0); EOS # 0.1 10^3/uL (0.0-0.50); HEMATOCRIT 35.8 % (36.0-47.0); HEMOGLOBIN 11.9 g/dl (12.0-15.5); LYMPH # 1.2 10^3/uL (1.5-4.5); LYMPH % 19.8 % (24.0-44.0); MEAN CORPUSCULAR HEMOGLOBIN 30.3 pg (27.0-33.0); MEAN CORPUSCULAR HGB CONC 33.2 g/dl (32.0-36.5); MEAN CORPUSCULAR VOLUME 91.1 fl (80.0-96.0); MONO # 0.8 10^3/uL (0.0-0.8); MONO % 13.2 % (0.0-5.0); NEUTROPHILS # 3.8 10^3/uL (1.8-7.7); PLATELET COUNT, AUTOMATED 177 10^3/uL (150-450); RED BLOOD COUNT 3.93 10^6/uL (4.00-5.40); WHITE BLOOD COUNT 5.9 10^3/uL (4.0-10.0)
[2019-05-07 21:36] LABS: HEMOGLOBIN A1c 7.2 %
[2019-05-07 21:37] LABS: CALCIUM LEVEL 8.6 MG/DL (8.8-10.2); CREATININE FOR GFR 1.59 MG/DL (0.55-1.30); GLOMERULAR FILTRATION RATE 33.9 (>39); POTASSIUM SERUM 4.2 MEQ/L (3.5-5.1)
[2019-05-07 21:45] VITALS: BP 155/70
== END 2019-05-07 22:11 | disposition home or self-care (01) ==
LOC: M ED 19:54
DX: N18.2 Chronic kidney disease, stage 2 (mild) (principal); I12.9 Hypertensive chronic kidney disease with stage 1 through stage 4 chronic kidney disease, or unspecified chronic kidney disease; N28.9 Disorder of kidney and ureter, unspecified; C50.019 Malignant neoplasm of nipple and areola, unspecified female breast; Z91.011 Allergy to milk products; Z79.899 Other long term (current) drug therapy

== ENCOUNTER → 2019-05-09 | Outpatient (CLI) | payer MEDICARE ==
[2019-05-09 13:42] LABS: BASO # 0.1 10^3/uL (0.0-0.2); BASO % 0.8 % (0.0-1.0); EOS # 0.1 10^3/uL (0.0-0.50); EOS % 2.1 % (0.0-3.0); HEMATOCRIT 39.7 % (36.0-47.0); HEMOGLOBIN 12.7 g/dl (12.0-15.5); LYMPH # 1.1 10^3/uL (1.5-4.5); LYMPH % 16.7 % (24.0-44.0); MEAN CORPUSCULAR HEMOGLOBIN 29.7 pg (27.0-33.0); MEAN CORPUSCULAR VOLUME 92.8 fl (80.0-96.0); MONO # 0.8 10^3/uL (0.0-0.8); MONO % 11.3 % (0.0-5.0); NEUTROPHILS # 4.6 10^3/uL (1.8-7.7); NEUTROPHILS % 68.6 % (36.0-66.0); PLATELET COUNT, AUTOMATED 199 10^3/uL (150-450); RED BLOOD COUNT 4.28 10^6/uL (4.00-5.40); WHITE BLOOD COUNT 6.6 10^3/uL (4.0-10.0)
[2019-05-09 14:03] LABS: ALBUMIN 3.8 GM/DL (3.2-5.2); ALT/SGPT 26 U/L (12-78); BILIRUBIN,TOTAL 0.4 MG/DL (0.2-1.0); BLOOD UREA NITROGEN 28 MG/DL (7-18); CALCIUM LEVEL 9.8 MG/DL (8.8-10.2); CARBON DIOXIDE LEVEL 27 MEQ/L (21-32); CHLORIDE LEVEL 105 MEQ/L (98-107); CHOLESTEROL LEVEL 230 MG/DL (<200); CREATININE FOR GFR 1.53 MG/DL (0.55-1.30); GLOMERULAR FILTRATION RATE 35.4 (>39); GLUCOSE, FASTING 124 MG/DL (70-100); HDL CHOLESTEROL 46 MG/DL (>40); MAGNESIUM LEVEL 2.1 MG/DL (1.8-2.4); NON-HDL-C 184 MG/DL; SODIUM LEVEL 141 MEQ/L (136-145); TOTAL PROTEIN 8.1 GM/DL (6.4-8.2); TRIGLYCERIDES LEVEL 448 MG/DL (<150)
== END ==
LOC: M SMT 08:18
PROVIDERS: ATTEND Physician Assistant Medical
DX: I10 Essential (primary) hypertension (principal); N18.3 Chronic kidney disease, stage 3 (moderate); E78.00 Pure hypercholesterolemia, unspecified

== ENCOUNTER → 2019-06-11 | Outpatient (REF) | payer MEDICARE, MEDICAID ==
[~2019-06-11] MED LIST changes: +CHOL100029 PO; -VITAD1000T PO
[2019-06-11 14:45] LABS: ALBUMIN 3.9 GM/DL (3.2-5.2); BILIRUBIN,TOTAL 0.3 MG/DL (0.2-1.0); CALCIUM LEVEL 9.4 MG/DL (8.8-10.2); CREATININE FOR GFR 1.43 MG/DL (0.55-1.30); GLOMERULAR FILTRATION RATE 38.3 (>39); POTASSIUM SERUM 4.7 MEQ/L (3.5-5.1)
[2019-06-11 15:32] LABS: HEMOGLOBIN A1c 6.7 %
== END ==
LOC: M SFHCPLAZ 11:29
PROVIDERS: ATTEND Physician Assistant Medical
DX: N18.3 Chronic kidney disease, stage 3 (moderate) (principal); E11.8 Type 2 diabetes mellitus with unspecified complications
CPT/HCPCS: 36415; 80053; 83036; 83735; G0463

== ENCOUNTER → 2019-06-19 | Outpatient (CLI) | payer MEDICARE ==
--- NOTE | 2019-06-20 14:54 | RADONC ---
RADIATION ONCOLOGY FOLLOWUP NOTE: DATE: 06/19/2019 CHART NUMBER: [id number] DIAGNOSIS: Left breast cancer. STAGE: I A, T1c N0 M0, grade 2, ER positive, [place] positive, HER2/[place] negative. ECOG PERFORMANCE STATUS: 0 Mrs. Hart is a very pleasant 73-year-old female who returns today for followup visit after having completed a course of adjuvant radiotherapy on 05/07/2019. She tolerated her therapy reasonably well with the exception of some skin irritation and she had returns today denying any nausea, vomiting, coughing, sputum production or hemoptysis. Her energy level is adequate. She is able to maintain most day-to-day activities without any alteration of her lifestyle. She is due to see Dr. Olga Medley in the next several months at which time she will have a mammogram and be seen in followup by Dr. Medley as well. She is also following up, I believe, with Dr. Juliet Bray and has been on an aromatase inhibitor. She denies any other significant side effects such as diplopia, headaches, anxiety, depression, anorexia, weight loss, visual disturbances, chest pain, urinary or bowel problems or bone pain. She also denies neurologic issues. She does have one small area on her left anterior chest which is somewhat irritating and involves the skin and measures approximately 1.5 cm. It looks as though he may be a small very superficial area of an allergic reaction versus perhaps some idiosyncratic reaction to her radiotherapy. It does not appear to be of major concern. EXAMINATION FINDINGS: The skin within the irradiated volume shows still some hyperpigmentation but it is healing very nicely. There is no masses are palpable in either breast. Lungs are clear to auscultation percussion. Heart: Regular without murmurs. Abdomen: Without evidence of hepatomegaly, masses, deep abdominal tenderness. Extremities: Without cyanosis, clubbing or edema. Neurologic: Examination grossly physiologic. IMPRESSION: The patient appears to be clinically NAD. PLAN: We would like to have her return in approximately 6 months or p.r.n. and she was advised to return to her referring physicians as per their directions and instructions. cc: MD Juliet Hu MD Susan Swatsworth, PA
== END ==
LOC: M ONCR 10:00
PROVIDERS: ATTEND Radiology Radiation Oncology
DX: C50.812 Malignant neoplasm of overlapping sites of left female breast (principal)

== ENCOUNTER → 2019-10-17 | Outpatient (REF) | payer MEDICARE, MEDICAID ==
[2019-10-17 14:19] LABS: BASO # 0.1 10^3/uL (0.0-0.2); EOS # 0.2 10^3/uL (0.0-0.5); EOS % 2.8 % (0.0-3.0); HEMATOCRIT 37.3 % (36.0-47.0); HEMOGLOBIN 11.6 g/dl (12.0-15.5); LYMPH # 1.2 10^3/uL (1.5-5.0); LYMPH % 20.2 % (24.0-44.0); MEAN CORPUSCULAR HEMOGLOBIN 29.2 pg (27.0-33.0); MEAN CORPUSCULAR HGB CONC 31.1 g/dl (32.0-36.5); MONO # 0.6 10^3/uL (0.0-0.8); MONO % 10.3 % (0.0-5.0); NEUTROPHILS % 65.5 % (36.0-66.0); PLATELET COUNT, AUTOMATED 184 10^3/uL (150-450); RED BLOOD COUNT 3.97 10^6/uL (4.00-5.40); WHITE BLOOD COUNT 6.1 10^3/uL (4.0-10.0)
[2019-10-17 14:49] LABS: ALBUMIN 3.7 GM/DL (3.2-5.2); ALT/SGPT 25 U/L (12-78); BILIRUBIN,TOTAL 0.3 MG/DL (0.2-1.0); BLOOD UREA NITROGEN 26 MG/DL (7-18); CALCIUM LEVEL 8.9 MG/DL (8.8-10.2); CARBON DIOXIDE LEVEL 28 MEQ/L (21-32); CHLORIDE LEVEL 103 MEQ/L (98-107); CHOLESTEROL LEVEL 199 MG/DL (<200); CHOLESTEROL RISK RATIO 5.685 (<5); CPK CREATINE PHOSPHOKINASE 90 U/L (26-192); CREATININE FOR GFR 1.44 MG/DL (0.55-1.30); GLOMERULAR FILTRATION RATE 37.9 (>39); GLUCOSE, FASTING 148 MG/DL (70-100); HDL CHOLESTEROL 35 MG/DL (>40); NON-HDL-C 164 MG/DL; POTASSIUM SERUM 4.5 MEQ/L (3.5-5.1); SODIUM LEVEL 138 MEQ/L (136-145); TOTAL PROTEIN 7.8 GM/DL (6.4-8.2); TRIGLYCERIDES LEVEL 666 MG/DL (<150)
[2019-10-17 14:54] LABS: CREATININE, URINE 69.7 MG/DL; MALB URINE SIEMENS 27.2 MG/L
== END ==
LOC: M SFHCPLAZ 10:58
PROVIDERS: ATTEND Physician Assistant Medical
DX: E11.8 Type 2 diabetes mellitus with unspecified complications (principal); E78.00 Pure hypercholesterolemia, unspecified; I10 Essential (primary) hypertension
CPT/HCPCS: 36415; 80053; 80061; 82043; 82550; 83036; 85025; G0463

== ENCOUNTER → 2020-05-04 | Outpatient (REF) | payer MEDICARE, MEDICAID ==
[~2020-05-04] MED LIST changes: +D31000TA2 PO; +PEPC1TAB5 PO
[2020-05-29 21:25] LABS: BASO % 0.6 % (0.0-1.0); EOS # 0.1 10^3/uL (0.0-0.5); EOS % 1.6 % (0.0-3.0); HEMATOCRIT 35.3 % (36.0-47.0); HEMOGLOBIN 11.3 g/dl (12.0-15.5); LYMPH # 1.3 10^3/uL (1.5-5.0); LYMPH % 20.8 % (24.0-44.0); MEAN CORPUSCULAR HEMOGLOBIN 29.5 pg (27.0-33.0); MEAN CORPUSCULAR VOLUME 92.2 fl (80.0-96.0); MONO # 0.5 10^3/uL (0.0-0.8); MONO % 7.8 % (0.0-5.0); NEUTROPHILS # 4.4 10^3/uL (1.5-8.5); NEUTROPHILS % 68.9 % (36.0-66.0); PLATELET COUNT, AUTOMATED 179 10^3/uL (150-450); RED BLOOD COUNT 3.83 10^6/uL (4.00-5.40); WHITE BLOOD COUNT 6.4 10^3/uL (4.0-10.0)
[2020-07-10 15:39] LABS: GLUCOSE, FASTING SEE SEPARATE REPORT MG/DL
== END ==
LOC: M SFHCPLAZ 11:10
PROVIDERS: ATTEND Physician Assistant Medical
DX: I10 Essential (primary) hypertension (principal)